=== PATIENT | male | born 1955 | race Caucasian/White ===

== ENCOUNTER → 2017-11-29 09:57 | Outpatient (CLI) | payer BC, SELFPAY ==
--- NOTE | 2017-11-29 10:00 | ECHOD_ITS ---
Reason For Study: CAD/ASHD Procedure This was a 2D Doppler, Color Flow transthoracic echocardiogram. The exam was of fair technical quality due to diminished acoustic windows. The study was technically difficult. Contrast injection was performed. Exam performed in department. Left Ventricle Normal LV size. Apical false tendon noted. Mild to moderate segmental systolic dysfunction (see wall motion). The estimated ejection fraction is 40 %. Transmitral doppler flow suggestive of impaired relaxation of left ventricle. Mid-Anterior : Severely Hypokinetic. Mid-Lateral : Hypokinetic. Mid-Inferior: Hypokinetic. Mid-inferoseptal : Hypokinetic. Mid-anteroseptal : Hypokinetic. [place] : Akinetic. Right Ventricle Normal RV size. Normal systolic function. Atria Normal left atrium. Normal right atrium. Prominent eustachian valve. No doppler evidence for ASD. Mitral Valve There is no mitral annular calcification. Normal mitral valve. Mild (1+) mitral valve insufficiency. Tricuspid Valve Normal tricuspid valve. Trivial tricuspid valve insufficiency. Right ventricular systolic pressure estimated to be 22 mmHg. Aortic Valve Trisinus/trileaflet aortic valve. Normal aortic valve. Pulmonic Valve The pulmonic valve is not well visualized. Trivial pulmonic valve insufficiency. Great Vessels Normal sized aortic root. Pericardium/Pleural No pericardial effusion. Medication Definity0.5ml given slow IV push to enhance endocardial definition. MMode/2D Measurements & Calculations LVIDd: 5.3 cm IVSd: 1.2 cm Ao root diam: 3.1 cm LVIDs: 4.5 cm LVPWd: 0.90 cm LA dimension: 3.7 cm RVDd: 4.7 cm FS: 16.6 % LAV(MOD-bp): 61.9 ml LA A4 area: 19.1 cm2 RA A4 area: 15.4 cm2 LAV(MOD-bp) Indexed: 29.1 ml/m2 LAV(MOD-sp2): 73.6 ml LAV(MOD-sp4): 47.5 ml Doppler Measurements & Calculations MV E max phuc: 67.6 cm/sec Lat Peak E' Phuc: 5.1 cm/sec Med Peak E' Phuc: 5.8 cm/sec MV A max phuc: 60.9 cm/sec E/E' lat: 13.3 E/E' med: 11.6 MV E/A: 1.1 Ao V2 max: 97.4 cm/sec LV V1 max: 80.2 cm/sec PA V2 max: 102.1 cm/sec Ao max P.8 mmHg LV V1 max P.6 mmHg Ao V2 mean: 73.7 cm/sec Ao mean P.3 mmHg Ao V2 VTI: 22.5 cm TR max phuc: 215.3 cm/sec TR max P.6 mmHg Interpretation Summary The study was technically difficult. Contrast injection was performed. Mild to moderate segmental systolic dysfunction (see wall motion). The estimated ejection fraction is 40 %. Apical false tendon noted. Prominent eustachian valve. Mild (1+) mitral valve insufficiency. Trivial tricuspid valve insufficiency. Trivial pulmonic valve insufficiency. Right ventricular systolic pressure estimated to be 22 mmHg. Transmitral doppler flow suggestive of impaired relaxation of left ventricle Ordering Physician: Steve Rivera Referring Physician: John Ricardo Performed By: Dedra Gastelum, SPENCER, RVT
== END ==
PROVIDERS: Family Provider Family Medicine; PCP Family Medicine; Visit Provider Internal Medicine Cardiovascular Disease
DX: I25.10 Atherosclerotic heart disease of native coronary artery without angina pectoris (principal); I21.09 ST elevation (STEMI) myocardial infarction involving other coronary artery of anterior wall; Z95.5 Presence of coronary angioplasty implant and graft; I25.5 Ischemic cardiomyopathy; E78.5 Hyperlipidemia, unspecified
CPT/HCPCS: 93306; Q9957; A4216; C8929

== ENCOUNTER 2018-04-17 10:18 | Day surgery (SDC) | payer BC, SELFPAY ==
--- NOTE | 2018-04-11 11:36 | EKG12_ITS ---
Test Reason : PREOP Blood Pressure : / mmHG Vent. Rate : 059 BPM Atrial Rate : 059 BPM P-R Int : 162 ms QRS Dur : 132 ms QT Int : 442 ms P-R-T Axes : 064 074 062 degrees QTc Int : 437 ms Sinus bradycardia Right bundle branch block Anterior infarct , age undetermined Abnormal ECG Confirmed by MARAH SAMUELS, GÉNESIS ([id number]), editorial cartoonist ROSEMARIE DE LOS SANTOS ([id number]) on 04/12/2018 1:28:06 PM Referred By: Roosevelt Butler Confirmed By:GÉNESIS CRYSTAL MD
[2018-04-11 11:49] LABS: Hematocrit 43.6 % (40-54); Hemoglobin 14.5 g/dl (13.0-16.5); Mean Corp Hgb Conc 33.3 g/gl (32-36); Mean Corpuscular Hgb 30.1 pg (27.0-32.0); Mean Corpuscular Volume 90.6 fL (80-94); Mean Platelet Vol. 9.6 fl (6.2-12.0); Platelet Count 163 K/mm3 (150-450); RBC Distribution Width CV 13.1 % (11.6-14.6); RBC Distribution Width SD 43.2 fl (35.1-43.9); Red Blood Count 4.81 M/mm3 (4.6-6.2); White Blood Count 5.7 K/mm3 (4.4-11.0)
[2018-04-11 11:50] LABS: Scan Indicated on CBC? Y/N NO
[2018-04-11 12:16] LABS: Anion Gap 8 (5-15); BUN 18 mg/dL (7-18); BUN/Creat Ratio 20.2 RATIO (10-20); Calcium,Total 8.8 mg/dL (8.5-10.1); Chloride 107 mmol/L (98-107); Creatinine, Serum 0.89 mg/dL (0.70-1.30); EST Glomerular Filtration Rate 92 mL/min (>60); Est Glom Filt Rate - Afr Amer 111 mL/min (>60); Glucose 78 mg/dL (74-106); Potassium 4.2 mmol/L (3.5-5.1); Sodium Level 141 mmol/L (136-145)
[2018-04-17 10:36] VITALS: BP 128/82; PULSE 56; RESP 16; TEMP 36.4; O2SAT 99; BMI 25.9
[2018-04-17] MEDS: Cefazolin 2 GM in 0.9% Normal Saline 100 ML IV (11:37)
--- NOTE | 2018-04-17 12:15 | RAD_ITS ---
STUDY: X-RAY - RIGHT KNEE REASON FOR EXAM: Male, 62 years old. Subchondroplasty TECHNIQUE: 3 intraoperative view(s) of the knee. COMPARISON: None. FINDINGS: 3 limited C-arm films were obtained as the patient has undergone subchondroplasty of the proximal right tibia. RAD/Knee 1 or 2 Views IMPRESSION: Intraoperative studies Electronically Signed: Storm Stoddard MD at 13:39 EDT , Service support ,
[2018-04-17] MEDS: Bupiv/Epi 0.5% Mpf 30 ML Vial (12:49)
--- NOTE | 2018-04-17 13:04 | OP.PCM_ITS ---
Report of Operation Date of Procedure: 04/17/18 Pre-Operative Diagnosis: 1. Right knee posterior horn medial meniscus tear complex. 2. Right knee posterior horn lateral meniscus tear complex. 3. Right knee chondromalacia. 4. Right knee subchondral fracture lateral tibial plateau Post-Operative Diagnosis: 1. Right knee posterior horn medial meniscus tear complex. 2. Right knee posterior horn lateral meniscus tear complex. 3. Right knee chondromalacia. 4. Right knee subchondral fracture lateral tibial plateau Surgery/Procedure Performed:: 1. Arthroscopic aided treatment of lateral tibial plateau fracture, right knee. 2. Right knee arthroscopic partial medial and lateral meniscectomies. 3. Right knee arthroscopic patellofemoral chondroplasty Description of Surgical Findings:: See body of report enterprise resource planner: None Type of Anesthesia:: General Anesthesiologist: Isaak Evangelista Special Medications: 2 g Ancef Estimated Blood Loss (mL): 7 Fluids Replaced: 800 ml fluid Description of Procedure: On the date of the procedure, the patient's R lower extremity was marked in the preoperative area. Patient was brought back to the operating room where they were transferred to the bed. Anesthesia assumed control of the C-spine airway and administered anesthetic. All bony prominences were identified and well- padded and the R leg was placed in the arthroscopic leg rios. The contralateral leg was then draped over the bed and well-padded. There was padding underneath both sciatic nerves. The foot of the bed was then dropped and the R leg was prepped in a sterile fashion. The surgeon then scrubbed. Upon reentering the room, the operative leg was draped in a standard orthopedic fashion. A timeout was called, everyone agreed upon the side, the site, the procedure to be performed, patient's identity and antibiotics given. Incisions were marked out for the medial and lateral infrapatellar portals. Esmarch bandage was then used to exsanguinate the leg and tourniquet was placed at 250 mmHg. At this time, the lateral portal incision was made in a vertical fashion. The trocar was placed into the joint. The camera was then placed and the patellofemoral joint was visualized. The patella did appear to have grade 3 -4 chondral changes. The trochlea appeared to have grade 2-3 chondral changes with no distinct flaps. We then directed our attention to the medial gutter where there was no foreign body. Then directed our attention to the medial joint compartment. There were grade 2 chondral changes on the medial distal femur, grade 2 chondral changes on the medial tibial plateau. The medial meniscus had posterior horn complex tear. The medial portal was then placed under direct visualization using a spinal needle an 11 blade scalpel. Once this was done a probe was placed in the joint and the meniscus was probed finding posterior horn medial meniscus tear. The biters and fabiola were then used sequentially to debriding get rid of any free edges that could be a source of pain and catching in the meniscus tear. We then directed our attention to the distal femoral and proximal tibial condyles where the chondral flaps were noted. Frayed and free cartilage were debrided using the shaver performing a chondroplasty. Once we felt medial meniscus tear was adequately debrided, we again visualized the joint and noted the meniscus tear was adequately debrided. Attention was then turned towards the notch where the anterior cruciate ligament was intact. PCL was visualized and appeared intact. Attention was then directed towards the lateral compartment where the lateral distal femur had grade 2 chondral changes, the lateral proximal tibia had grade 3 chondral changes. The lateral meniscus had large posterior horn tear. The biters and fabiola were then used sequentially to debriding get rid of any free edges that could be a source of pain and catching in the meniscus tear. Our attention was then directed back to the patellofemoral compartment where the shaver was placed in the patellofemoral compartment in the trochlea and the patella cartilage frayed edges were debrided using the shaver performing the patellofemoral chondroplasty Scope was then removed from the knee. At this time based on the preoperative review of this patient's right knee consistent with lateral tibial plateau subchondral fracture, the location of the marrow lesion consistent with insufficiency stress fracture was identified. Preoperative surgical planning allowed for determination of the optimal method for assessing the lesion. Intraoperatively, image fluoroscopy combined with bone targeting instrumentation from [employer] was used to guide surgical instruments. Instruments were guided into the proximity of the subchondral lateral tibial plateau fracture. [employer] Accu port injection cannula was drilled into the subchondral bone. Standard repair methodology was used to treat subchondral bone defect in the lateral tibial plateau. Image fluoroscopy was utilized to confirm accurate insertion of the active port injection cannula into the subchondral fracture. After insertion fracture stabilization was performed by injecting 2.5 mL of [employer] bone substitute material into the lateral tibial plateau. Image fluoroscopy was used to monitor the injection process and ensure injection of the bone cement into the subchondral bone to the material flowed into the fracture site to stabilize a fracture and facilitate fracture repair. Final x-rays were then taken. Cement was allowed 8 minutes to set up and the Accuport was removed. The scope was then placed back into the knee and the medial compartment was examined for extravasation of cement. No cement had extravasated into the joint. We then directed our attention to the lateral gutter, which was visualized and no free bodies were noted. At this time the wound was copiously irrigated out with normal saline with epinephrine. The wound was closed with 4-0 nylon and 0.5% Marcaine and epinephrine were injected for local anesthetic. Xeroform was placed over the incision. Sterile dressing was placed. Compressive dressing was placed. Tourniquet was let down. For that there was then placed up. Patient was awakened by anesthesia patient was transferred to the PACU for recovery in stable condition. Postoperative plan: Patient will be made nonweightbearing for 2 weeks and then resume weightbearing as tolerated after that. Return to activities as tolerated. He will come to the office in 2 weeks for postoperative wound check and suture removal. If he is doing well that time he can follow-up as needed. Grafts/Implants Used: [employer] - Complications None - Admit VTE Documentation VTE Present on Admission: No VTE Mechan Device Prophylaxis: SCD's, Thigh High MARYAM Hose VTE Pharm Prophylaxis ordered?: Yes
[2018-04-17 13:06] VITALS: BP 124/76; BP 128/82; PULSE 84; RESP 12; TEMP 36.6; O2SAT 95
[2018-04-17 13:15] VITALS: BP 117/31; BP 128/82; PULSE 78; RESP 14; O2SAT 97
[2018-04-17 13:30] VITALS: BP 125/82; BP 128/82; PULSE 72; RESP 14; O2SAT 96
[2018-04-17] MEDS: Ketorolac 30 MG/ML Syringe IV (13:37)
[2018-04-17 13:44] VITALS: BP 128/82; BP 132/77; PULSE 56; RESP 14; TEMP 36.4; O2SAT 96
[2018-04-17 14:45] VITALS: BP 128/82; BP 148/92; PULSE 47; RESP 16; TEMP 36; O2SAT 100
== END 2018-04-17 14:45 | disposition home or self-care (01) ==
LOC: SDC 10:18 → AC 10:19
PROVIDERS: Family Provider Family Medicine; PCP Family Medicine; Visit Provider Specialist
PROC: (CPT 29870; principal; 2018-04-17 12:10)
DX: S83.231A Complex tear of medial meniscus, current injury, right knee, initial encounter (principal); X58.XXXA Exposure to other specified factors, initial encounter; Y93.02 Activity, running; M94.261 Chondromalacia, right knee; S83.271A Complex tear of lateral meniscus, current injury, right knee, initial encounter; S82.141A Displaced bicondylar fracture of right tibia, initial encounter for closed fracture; E78.00 Pure hypercholesterolemia, unspecified; Z79.82 Long term (current) use of aspirin; Z79.899 Other long term (current) drug therapy; I45.10 Unspecified right bundle-branch block; I25.2 Old myocardial infarction; Z87.891 Personal history of nicotine dependence; I10 Essential (primary) hypertension
CPT/HCPCS: 29855; 29880; 36415; 73560; 76000; 80048; 85027; 93005; J7120

== ENCOUNTER → 2020-01-28 08:06 | Outpatient (CLI) | payer BC, SELFPAY ==
[2019-08-01 09:03] VITALS: BMI 27.2
[2020-01-28 08:59] LABS: AST(SGOT) 25 U/L (15-37); Alanine Aminotransfer ALT/SGPT 43 U/L (16-61); Albumin, Serum 3.6 g/dL (3.2-5.0); Alkaline Phosphatase 60 U/L (45-117); Bilirubin, Direct 0.23 mg/dL (0.00-0.30); Cholesterol 130 mg/dL (200); Globulin 3.4 g/dL (2.2-4.2); High Density Lipoprotein 61 mg/dL; Triglycerides 74 mg/dL; Very Low Density Lipoprotein 15 mg/dL (5-40)
== END ==
PROVIDERS: PCP Family Medicine; Referring Provider Internal Medicine Cardiovascular Disease; Visit Provider Internal Medicine Cardiovascular Disease
DX: E78.00 Pure hypercholesterolemia, unspecified (principal)
CPT/HCPCS: 36415; 80061; 80076

== ENCOUNTER 2021-04-06 09:57 | Emergency (ER) | payer BC, SELFPAY ==
[2021-04-06 09:58] VITALS: BP 128/72; PULSE 55; RESP 18; TEMP 36.6; O2SAT 100; BMI 25.0
[2021-04-06 10:20] VITALS: BP 128/72; PULSE 55; RESP 18; TEMP 36.6; O2SAT 100
--- NOTE | 2021-04-06 10:23 | CT_ITS ---
STUDY: CT ABDOMEN AND PELVIS WITH CONTRAST REASON FOR EXAM: Male, 65 years old. Elevated transaminases, lipase and 11 pound uninte -- IV PO Contrast RADIATION DOSAGE (If Supplied By Facility): CTDIvol = ( 13.58 ) mGy, DLP = ( 706.21 ) mGycm TECHNIQUE: Transaxial images were obtained from the dome of the diaphragm to the symphysis pubis with oral contrast. Oral and amp; IV Gastrografin and amp; 100mL Isovue-300 was administered. Sagittal and coronal images were reconstructed. Individualized dose optimization techniques were used for this CT. COMPARISON: None. FINDINGS: The visualized lung bases are unremarkable. The visualized portions of the heart are within normal limits. Normal liver. Normal gallbladder and extrahepatic biliary system. 2 wedge-shaped areas of decreased enhancement within the spleen consistent with splenic infarcts. These are likely embolic in origin as the splenic artery and splenic vein appears patent. Normal pancreas. There is symmetric enlargement of the adrenal glands suggesting adrenal hyperplasia. Small bilateral renal cysts. 3.5 cm solid heterogeneously enhancing mass of the posterior lateral cortex of the midsection of left kidney worrisome for renal cell carcinoma. No evidence of tumor thrombus within the left renal vein or inferior vena cava. Normal visualized stomach. Diverticulum in second portion duodenum. Normal colon. There are surgical clips in the region of the appendix consistent with a prior appendectomy. Normal abdominal aorta. Normal inferior vena cava. Normal retroperitoneum. Severe bladder distention extending to the level the umbilicus. There is enlargement of the prostate gland. Normal abdominal wall. Normal osseous structures. CT/Abdomen/Pelvis WITH Contrast IMPRESSION: 1. 3.5 cm solid heterogeneously enhancing mass in the posterior lateral cortex of the midsection left kidney worrisome for renal cell carcinoma. No CT evidence of metastatic lymphadenopathy. 2. 2. Splenic infarcts likely of embolic origin. 3. Probable benign prostatic hyperplasia with severe bladder distention. Electronically Signed: Jacobo Medina MD at 12:56 EDT Tel , Service support ,
--- NOTE | 2021-04-06 11:26 | EX.ED.DYSGE1 ---
HPI History of Present Illness Chief Complaint: Abd Pain Detail of Chief Complaint: Elevated transaminase, lipase and unintentional weight loss Informant: patient and spouse/S.O. Onset/Context/Timing Onset: Month(s) Context: Gradual Onset Timing: Continuous Quality: Loss of appetite, weight loss, elevated/abnormal labs Location: Not applicable Current Severity: Mild Maximum Severity: Moderate Worsened by: Nothing Relieved by: Nothing Associated Symptoms Associated Symptoms: Read HPI Narrative Narrative: Patient is a 65-year-old male with past medical history of ischemic cardiomyopathy, hyperlipidemia, coronary disease status post NH who presents because of elevated AST and ALT approximately 3 times normal and lipase approximately 3 times normal with unintentional weight loss of 11 pounds over the past month. He has had hard small stool. Stool is dark. He did take Pepto-Bismol last evening. Stool was not black or maroon-colored. He does report nausea. He states he has no appetite. He denies fever or chills. He denies night sweats. He denies back or bone pain. He does have intolerance to greasy food. He states he has generalized abdominal discomfort. He has not noted any change in the color of his urine. He has not noted change in color or stool. He denies history of pancreatitis. He is status post appendectomy. He denies cardiac or respiratory symptoms. Prior similar symptoms: No Recent Illness/Hospitalization: No [facility] Medical History (Updated 04/06/21 @ 16:[address] Olu Armas MD) Anterior myocardial infarction Atherosclerotic heart disease of [place] coronary artery without angina pectoris Hyperlipidemia Ischemic cardiomyopathy Home Medications aspirin 81 mg PO DAILY 10/12/16 [History Last Taken Unknown] nitroglycerin 0.4 mg sublingual tablet 0.4 mg SUBLINGUAL Q5-15M PRN #25 tab 02/14/19 [Rx Last Taken Unknown] atorvastatin 80 mg tablet 80 mg PO DAILY #90 tab 03/24/20 [Rx Last Taken Unknown] carvedilol 3.125 mg tablet 3.125 mg PO BID #180 tab 03/24/20 [Rx Last Taken Unknown] omega-3 fatty acids 1,000 mg capsule 1,000 mg PO DAILY 05/07/20 [History Last Taken Unknown] tamsulosin 0.4 mg capsule 0.4 mg PO DAILY 05/07/20 [History Last Taken Unknown] rivaroxaban [Xarelto DVT-PE Treat 30d Start] See Rx Instructions .ROUTE .COMPLEX 30 Days #49 tablet 04/06/21 [Rx Last Taken Unknown] Allergy/AdvReac Type Severity Reaction Status Date / Time Sulfa (Sulfonamide Allergy SWEATING Verified 04/06/21 10:02 Antibiotics) AND LIGHT HEADED Family History Father Myocardial infarction CAD (coronary artery disease) Hypertension Diabetes Mother Diabetes Atrial fibrillation Brother Diabetes Surgical History History of right knee surgery History of vasectomy Hx of appendectomy Postsurgical percutaneous transluminal coronary angioplasty (PTCA) status (~04/08/14) Presence of stent in coronary artery (~04/08/14) Social History (Updated 04/06/21 @ 11:[address] Olu Armas MD) household members: spouse Smoking Status: Former smoker alcohol intake: current substance use type: does not use ROS ROS ED Constitutional Constitutional ED: Reports weight loss; Denies chills, fever(s), subjective or sweats Eyes Eyes: Denies blurry vision, change in vision or diplopia ENT ENT ED: Denies ear pain, rhinorrhea or sore throat Cardiovascular Cardiovascular: Denies chest pain, orthopnea, palpitations or paroxysmal nocturnal dyspnea Respiratory/Chest Respiratory/Chest: Denies cough, dyspnea, dyspnea on exertion, orthopnea or paroxysmal nocturnal dyspnea Gastrointestinal Gastrointestinal: Reports abdominal pain and nausea; Denies constipation, diarrhea, melena or vomiting Genitourinary Genitourinary ED: Denies dysuria, hematuria or urinary frequency Musculoskeletal Musculoskeletal: Denies arthralgias, back pain, myalgias or neck pain Integumentary Denies rash Neurologic Neurologic: Reports weakness; Denies headache(s) or paresthesias Endocrine Endocrinology: Denies polydipsia, polyphagia or polyuria EXAM Physical Exam Const Vital Signs: 04/06/21 09:58 04/06/21 10:20 04/06/21 11:34 Temperature 97.9 F 97.9 F 97.6 F L Temperature Source Temporal Temporal Oral Pulse Rate 55 L 55 L 68 Respiratory Rate 18 18 15 Blood Pressure 128/72 H 128/72 H 129/77 H Blood Pressure Mean 90 90 94 Pulse Ox 100 100 97 Oxygen Delivery Method Room Air Room Air Room Air 04/06/21 12:08 04/06/21 15:28 Temperature 97.6 F L Temperature Source Oral Pulse Rate 62 61 Respiratory Rate 15 14 Blood Pressure 138/77 H 131/87 H Blood Pressure Mean 97 101 Pulse Ox 97 98 Oxygen Delivery Method Room Air Room Air Positive well nourished and well developed General Appearance ED: well developed and NAD HEENT Reports TM's clear and dry mucous membranes HEENT Narrative: Head is atraumatic normocephalic. Ears normal. Nares patent. Tympanic Membrane ED: Yes TM's clear Mouth ED: Yes dry mucous membranes Mouth: dry mucous membranes Eyes PERRL and EOMs intact bilaterally General Eye ED: Negative for pale conjunctiva or scleral icterus Neck no lymphadenopathy, supple and no JVD Chest Wall inspection of chest normal Resp normal respiratory effort and clear to auscultation bilaterally Cardio regular rhythm, S1 normal heart sound, S2 normal heart sound and no murmurs Rate: bradycardia GI no masses; Negative for non-tender, non-distended or hepatosplenomegaly Inspection: abdominal distention Auscultation: hypoactive bowel sounds Palpation: soft and tender LUQ (To deep palpation.); Negative for guarding or rebound tenderness present Back/Spine no CVA tenderness Cervical Spine: Negative for cervical spine tenderness Thoracic Spine / Upper Back: Negative for thoracic spinal tenderness or paraspinal muscle tenderness Extremity normal to inspection General Extremety ED: Negative for edema or tenderness General Extremity: Negative for edema Neuro oriented x3, CN's II-XII intact bilaterally and no sensory deficits noted Sensorium / Orientation: alert Motor Exam: strength 5/5 throughout Psych mental status grossly normal Skin no rashes or lesions noted and no wounds MDM MDM MDM Narrative Medical decision making narrative: Patient had blood work performed at the [facility] yesterday. White count and H&H are normal. Electrolyte panel reveals mild hyponatremia. Calcium was normal. AST and ALT approximately 2-3 times above normal and lipase was approximately 3 times normal. These were not repeated. Creatinine was 0.77. CT of the abdomen with p.o. and IV contrast was obtained to evaluate for hepatic and pancreatic pathology and specifically pancreatic cancer. Post void residual is 999 mL. Amaro was ordered. Patient wishes to remain in the [facility] system. Dr. James is on-call for oncology and was paged. Case was discussed with Dr. Steve James. He recommended CT of the chest. If there is nodules referral to urology and him otherwise referral to urology. Radiography Diagnostic Testing: Radiology Impression Abdomen/Pelvis CT 04/06/21 10:23 IMPRESSION: 1. 3.5 cm solid heterogeneously enhancing mass in the posterior lateral cortex of the midsection left kidney worrisome for renal cell carcinoma. No CT evidence of metastatic lymphadenopathy. 2. 2. Splenic infarcts likely of embolic origin. 3. Probable benign prostatic hyperplasia with severe bladder distention. Electronically Signed: Jacobo Medina MD at 12:56 EDT Tel , Service support , CT of the chest reveals no metastatic disease. Therefore patient was discharged to follow-up with Dr. Corona. He was given prescription for Xarelto. He was given a starter pack. He was instructed follow-up with Loki Anthony for additional scripts. Discharge Plan Triage Chief Complaint: Abd Pain ED Provider: Olu Armas Dx/Rx/DC Orders Clinical Impression: Left kidney mass, Splenic infarct, Acute urinary retention, Benign prostatic hyperplasia Instructions: ED Amaro Catheter, Care, ED Tumor, Uncertain Cause, ED Urinary Retention, Male Prescriptions: New Xarelto DVT-PE Treat 30d Start 15 mg (42)- 20 mg (9) tablets,dose pack See Rx Instructions .ROUTE .COMPLEX 30 Days Qty: 49 RF: 0 No Action nitroglycerin 0.4 mg tablet, sublingual 0.4 mg SUBLINGUAL Q5-15M PRN (Reason: chest pain) Qty: 25 RF: 3 omega-3 fatty acids [Fish Oil Concentrate] 1,000 mg capsule 1,000 mg PO DAILY RF: 0 tamsulosin 0.4 mg capsule 0.4 mg PO DAILY RF: 0 aspirin 81 MG tablet,delayed release (DR/EC) 81 mg PO DAILY RF: 0 atorvastatin 80 mg tablet 80 mg PO DAILY Qty: 90 RF: 3 carvedilol 3.125 mg tablet 3.125 mg PO BID Qty: 180 RF: 3 Primary Care Provider: Aurora Anthony Referrals: Victor M Corona MD [STAFF PHYSICIAN] - As soon as possible Anthony,M Scott PA, PA [Primary Care Provider] - Disposition Disposition: Home, Self Care
[2021-04-06 11:34] VITALS: BP 129/77; PULSE 68; RESP 15; TEMP 36.4; O2SAT 97
[2021-04-06 12:08] VITALS: BP 138/77; PULSE 62; RESP 15; TEMP 36.4; O2SAT 97
--- NOTE | 2021-04-06 14:50 | CT_ITS ---
STUDY: CT CHEST WITHOUT CONTRAST REASON FOR EXAM: Male, 65 years old. Assess for lung mass, newly diagnosed renal cell c RADIATION DOSAGE (If Supplied By Facility): CTDIvol = ( 14.82 ) mGy, DLP = ( 544.28 ) mGycm TECHNIQUE: Transaxial imaging was performed without the administration of intravenous contrast material. Individualized dose optimization techniques were used for this CT. COMPARISON: None. FINDINGS: Patchy ground glass density within both lungs consistent with subsegmental atelectasis or pneumonitis. There is no demonstrated pleural abnormality. Normal heart and pericardium. There are calcifications of the coronary arteries. Normal mediastinum. Normal hilar regions. Normal unenhanced pulmonary arteries. Normal aorta arch and descending thoracic aorta. Normal osseous structures. There is no demonstrated abnormality of the visualized upper abdomen. CT/Chest without Contrast IMPRESSION: 1. Bilateral subsegmental atelectasis or pneumonitis. Imaging features can be seen with over 19 pneumonia though are nonspecific and can occur with a variety of infectious and noninfectious processes. 2. No CT evidence of metastatic disease. Electronically Signed: Jacobo Medina MD at 16:54 EDT Tel , Service support ,
[2021-04-06] MEDS: APIXABAN 5 MG TABLET PO (15:27)
[2021-04-06 15:28] VITALS: BP 131/87; PULSE 61; RESP 14; O2SAT 98
[2021-04-06 17:17] VITALS: BP 133/81; PULSE 56; RESP 14; O2SAT 97
== END 2021-04-06 17:33 | disposition home or self-care (01) ==
PROVIDERS: Emergency Provider Emergency Medicine; PCP Physician Assistant
DX: N28.89 Other specified disorders of kidney and ureter (principal); D73.5 Infarction of spleen; N40.1 Benign prostatic hyperplasia with lower urinary tract symptoms; R33.8 Other retention of urine; E78.5 Hyperlipidemia, unspecified; I25.2 Old myocardial infarction; I25.5 Ischemic cardiomyopathy; I25.10 Atherosclerotic heart disease of native coronary artery without angina pectoris; Z95.5 Presence of coronary angioplasty implant and graft; Z90.49 Acquired absence of other specified parts of digestive tract; Z79.01 Long term (current) use of anticoagulants; Z79.82 Long term (current) use of aspirin; Z79.899 Other long term (current) drug therapy; Z87.891 Personal history of nicotine dependence
CPT/HCPCS: 51702; 71250; 74177; 96360; 96361; 99285; J7030; Q9967; A4216

== ENCOUNTER → 2021-04-21 13:03 | Outpatient (CLI) | payer BC, SELFPAY ==
--- NOTE | 2021-04-21 13:09 | ECHOCS_ITS ---
Reason For Study: ASHD/ EMBOLI Procedure This was a 2D Doppler, Color Flow transthoracic echocardiogram. The study was technically difficult. Contrast injection was performed. Exam performed in department. Left Ventricle Normal LV size. Apical false tendon noted. Mild segmental systolic dysfunction (see wall motion). The estimated ejection fraction is 40 %. No evidence for diastolic dysfunction. Basal inferoseptal: Hypokinetic. Mid-inferoseptal : Akinetic. Mid-anteroseptal : Hypokinetic. Eagle : Akinetic. Right Ventricle Normal RV size. Normal systolic function. Atria Normal left atrium. Normal right atrium. No doppler evidence for ASD. Mitral Valve There is no mitral annular calcification. Normal mitral valve. Mild (1+) mitral valve insufficiency. Tricuspid Valve Normal tricuspid valve. Mild tricuspid valve insufficiency. Right ventricular systolic pressure estimated to be 28 mmHg. Aortic Valve Trisinus/trileaflet aortic valve. Mild focal aortic valve calcification. Pulmonic Valve The pulmonic valve is not well visualized. Great Vessels Normal sized aortic root. Pericardium/Pleural No pericardial effusion. Medication 22 gauge I.V. with prn adaptor inserted into left arm. Diluted definity 4.0ml given slow IV push to enhance endocardial definition. MMode/2D Measurements & Calculations LVIDd: 5.1 cm IVSd: 1.1 cm Ao root diam: 3.2 cm LVIDs: 3.9 cm LVPWd: 1.1 cm RVDd: 4.0 cm FS: 22.8 % LAV(MOD-bp): 65.7 ml LVAd ap4: 51.2 cm2 LVAd ap2: 43.3 cm2 LAV(MOD-bp) Indexed: 31.5 ml/m2 LVLd ap4: 10.2 cm LVLd ap2: 9.0 cm LAV(MOD-sp2): 67.9 ml EDV(MOD-sp4): 212.6 ml EDV(MOD-sp2): 177.8 ml LAV(MOD-sp4): 65.9 ml EDV(sp4-el): 217.7 ml EDV(sp2-el): 177.4 ml LVAs ap4: 34.9 cm2 LVAs ap2: 35.1 cm2 LVLs ap4: 8.8 cm LVLs ap2: 8.2 cm ESV(MOD-sp4): 112.5 ml ESV(MOD-sp2): 121.8 ml ESV(sp4-el): 117.4 ml ESV(sp2-el): 126.7 ml EF(MOD-sp4): 47.1 % EF(MOD-sp2): 31.5 % EF(sp4-el): 46.1 % SV(MOD-sp4): 100.1 ml SV(MOD-sp2): 56.0 ml SV(sp4-el): 100.4 ml LA A4 area: 22.3 cm2 LA dimension(2D): 3.8 cm RA A4 area: 17.3 cm2 Doppler Measurements & Calculations MV E max phuc: 60.1 cm/sec Lat Peak E' Phuc: 6.7 cm/sec Med Peak E' Phuc: 6.6 cm/sec MV A max phuc: 60.8 cm/sec E/E' lat: 9.0 E/E' med: 9.0 MV E/A: 0.99 Ao V2 max: 118.1 cm/sec LV V1 max: 94.7 cm/sec TR max phuc: 252.1 cm/sec Ao max P.6 mmHg LV V1 max P.6 mmHg TR max P.4 mmHg ECHO/Echo Complete W/ Contrast Interpretation Summary The study was technically difficult. Contrast injection was performed. Mild segmental systolic dysfunction (see wall motion). The estimated ejection fraction is 40 %. Apical false tendon noted. Mild (1+) mitral valve insufficiency. Mild tricuspid valve insufficiency. Mild focal aortic valve calcification. Right ventricular systolic pressure estimated to be 28 mmHg. No evidence for diastolic dysfunction. Comment: No obvious intracardiac mass lesion/thrombus identified. Ordering Physician: Steve Rivera Referring Physician: KIRK FRANKLIN Performed By: Kimberly Hirsch, TANYACS, RVT
== END ==
PROVIDERS: PCP Physician Assistant; Referring Provider Internal Medicine Cardiovascular Disease; Visit Provider Internal Medicine Cardiovascular Disease
DX: I25.10 Atherosclerotic heart disease of native coronary artery without angina pectoris (principal)
CPT/HCPCS: 93306; Q9957; A4216; C8929; J3490

== ENCOUNTER 2021-08-16 06:51 | Outpatient (CLI) | payer BC, SELFPAY ==
--- NOTE | 2021-08-16 13:12 | STRESSREP_ITS ---
Stress Test Report [facility]: 08-16-2021 Procedure: Exercise tolerance test/imaging study Indications: CAD; PCI; ischemic cardiomyopathy; preoperative cardiovascular evaluation Consent: Per the patient Procedure: The patient exercised on a Librado protocol for 10 minutes completing Stage III and 1 minute of Stage IV achieving a peak heart rate of 164 bpm (105% predicted maximal heart rate) with a peak blood pressure 194/80 mmHg and a peak MET capacity of 13 METs. The baseline ECG demonstrated sinus bradycardia; right IVCD pattern; anteroseptal NM of indeterminate age cannot be excluded. The peak exercise ECG demonstrated somatic/motion artifact with continued right IVCD pattern and no obvious ST segment abnormality. There was a rare PVC during exercise and recovery. The functional capacity was considered good. There was no complaint of chest discomfort during exercise or recovery. The examination was discontinued secondary to dyspnea. Impression: 1. Technically adequate (percent predicted maximal heart rate greater than 85%) exercise tolerance test 2. Peak exercise ECG with somatic/motion artifact with continued right IVCD pattern with no obvious ST segment abnormality 3. There was a rare PVC during exercise and recovery 4. Nuclear images pending Myocardial perfusion imaging study: Technique: The patient was injected with 14.2 mCi of technetium 99m Cardiolite and subsequently rest SPECT Cardiolite nuclear imaging was obtained in the horizontal long, vertical long, and short axis views. The patient exercised on a Librado protocol for 10 minutes completing Stage III and 1 minute of Stage IV achieving a peak heart rate of 164 bpm (105% predicted maximal heart rate) with a peak blood pressure 194/80 mmHg and a peak MET capacity of 13 METs. The patient was injected with 44.4 mCi of technetium 99m Cardiolite and subsequently stress SPECT Cardiolite nuclear imaging was obtained in the horizontal long, vertical long, and short axis views. A gated Cardiolite study at peak stress was obtained. Interpretation: Rest and stress SPECT Cardiolite nuclear imaging status post realignment, normalization, and attenuation correction, demonstrates the appearance of diminished to absence of myocardial perfusion/tracer uptake in portions of the distal anterior, distal anteroseptal, distal inferoseptal, and apical segments. There is diminished end-systolic thickening and brightening in the aforementioned areas. The gated Cardiolite study demonstrates diminished myocardial thickening and inward wall motion in the aforementioned area with. The reported LVEF is 34%. Impression: 1. Rest and stress SPECT Cardiolite nuclear imaging demonstrate myocardial perfusion changes appearing compatible with an area of previous myocardial injury/infarction involving portions of the distal anterior, distal anteroseptal, distal inferoseptal, and apical segments with no myocardial perfusion changes considered diagnostic for associated stress-induced myocardial ischemia. 2. The gated Cardiolite study reports an LVEF of 34%. This note was generated with [employer] software. It may contain incorrect words, spelling, and punctuation that were not noted in checking the note before signing.
== END 2021-08-16 23:59 | disposition short-term general hospital (02) ==
PROVIDERS: PCP Physician Assistant; Referring Provider Internal Medicine Cardiovascular Disease; Visit Provider Internal Medicine Cardiovascular Disease
DX: I25.10 Atherosclerotic heart disease of native coronary artery without angina pectoris (principal); Z95.5 Presence of coronary angioplasty implant and graft; I25.5 Ischemic cardiomyopathy; E78.5 Hyperlipidemia, unspecified; N28.89 Other specified disorders of kidney and ureter; D73.5 Infarction of spleen
CPT/HCPCS: 78452; 93017; A9500; A4216; J2785

== ENCOUNTER → 2023-01-20 | Outpatient (CLI) | payer BC, SELFPAY ==
--- NOTE | 2023-01-20 09:51 | CT_ITS ---
EXAM: CT CHEST WITHOUT INTRAVENOUS CONTRAST CLINICAL INDICATION: Lung Nodule TECHNIQUE: Helically acquired images were obtained of the chest without intravenous contrast. This CT exam was performed using one or more of the following dose reduction techniques: automated exposure control, adjustment of the mA and/or kV according to patient size, and/or use of iterative reconstruction technique. RADIATION DOSE: CTDIvol = 21.06 mGy, DLP = 1162.79 mGy-cm COMPARISON: 04/06/2021. FINDINGS: LUNGS AND PLEURAL SPACES: Mild emphysema. No mass. No pleural effusion or thickening. No pneumothorax. HEART: Coronary artery calcifications. Heart size is normal. No pericardial effusion. MEDIASTINUM: Unremarkable. No mediastinal or hilar adenopathy. Esophagus is unremarkable. No hiatal hernia. THYROID: Unremarkable. No thyroid lesions. BONES/JOINTS: Unremarkable. No suspicious lytic or blastic abnormality. VASCULATURE: See above. OTHER FINDINGS: Small perifissural nodule measuring 4 mm abutting the minor fissure. CT/Chest without Contrast IMPRESSION: 1. Mild emphysema. 2. Small perifissural nodule measuring 4 mm abutting the minor fissure. No follow-up imaging necessary. 3. Coronary artery disease. Electronically Signed: Patrick Mckenzie MD at 21:50 EDT ,
== END | disposition home or self-care (01) ==
LOC: CT 09:50
PROVIDERS: PCP Physician Assistant; Referring Provider Internal Medicine Critical Care Medicine; Visit Provider Internal Medicine Critical Care Medicine
DX: R91.1 Solitary pulmonary nodule (principal)
CPT/HCPCS: 71250

== ENCOUNTER → 2024-03-14 | Outpatient (CLI) | payer OTHER, SELFPAY ==
--- NOTE | 2024-03-14 12:55 | ECHOD_ITS ---
Reason For Study: DILATED CMP Procedure This was a 2D Doppler, Color Flow transthoracic echocardiogram. The study was technically difficult. Contrast injection was performed. Exam performed in department. Left Ventricle Mildly dilated left ventricle. The estimated ejection fraction is 25-30 %. There is evidence of diastolic dysfunction. Global hypokinesis. Right Ventricle Normal RV size. Normal systolic function. Atria The left atrium is mildly enlarged. Normal right atrium. No doppler evidence for ASD. Mitral Valve There is no mitral valve stenosis. Trivial mitral valve insufficiency. Tricuspid Valve There is no tricuspid stenosis. Trivial tricuspid valve insufficiency. Unable to estimate RV systolic pressure due to insufficient tricuspid regurgitant envelope. Aortic Valve Trisinus/trileaflet aortic valve. There is no aortic stenosis. No aortic valve insufficiency. Pulmonic Valve There is no pulmonic valvular stenosis. No pulmonic valve insufficiency. Great Vessels Normal aortic root. Pericardium/Pleural No pericardial effusion. Medication 22 gauge I.V. with prn adaptor inserted into right arm. Diluted definity 1.5ml given slow IV push to enhance endocardial definition. MMode/2D Measurements & Calculations LVIDd: 5.8 cm IVSd: 1.1 cm Ao root diam: 3.4 cm LVIDs: 4.4 cm LVPWd: 1.1 cm RVDd: 3.4 cm FS: 23.8 % LAV(MOD-bp): 78.2 ml LA A4 area: 22.8 cm2 LA dimension(2D): 4.3 cm LAV(MOD-bp) Indexed: 36.0 ml/m2 LAV(MOD-sp2): 79.2 ml LAV(MOD-sp4): 76.9 ml TAPSE: 2.1 cm RA A4 area: 16.5 cm2 Time Measurements MV dec time: 0.16 sec Doppler Measurements & Calculations MV E max phuc: 50.2 cm/sec Lat Peak E' Phuc: 2.8 cm/sec Med Peak E' Phuc: 5.4 cm/sec MV A max phuc: 71.8 cm/sec E/E' lat: 17.8 E/E' med: 9.3 MV E/A: 0.70 MV V2 max: 81.0 cm/sec MV P1/2t max phuc: 52.9 cm/sec PA V2 max: 77.8 cm/sec MV max P.6 mmHg MV P1/2t: 58.7 msec PA V2 mean: 57.0 cm/sec MV V2 mean: 38.5 cm/sec MV dec slope: 264.2 cm/sec2 MV mean P.70 mmHg MV V2 VTI: 19.4 cm MVA(P1/2t): 3.7 cm2 ECHO/Echo Complete Interpretation Summary The estimated ejection fraction is 25-30 %. There is evidence of diastolic dysfunction. Global hypokinesis The left atrium is mildly enlarged. Trivial mitral valve insufficiency. Ordering Physician: Maryam Gonsales Referring Physician: Scott Anthony Performed By: Veda Call, SPENCER, RVT
== END | disposition home or self-care (01) ==
PROVIDERS: PCP Physician Assistant; Referring Provider Physician Assistant Medical; Visit Provider Physician Assistant Medical
DX: I25.5 Ischemic cardiomyopathy (principal); I25.10 Atherosclerotic heart disease of native coronary artery without angina pectoris; E78.5 Hyperlipidemia, unspecified
CPT/HCPCS: 93306; Q9957; A4216

== ENCOUNTER → 2024-06-09 | Outpatient (CLI) | payer OTHER, SELFPAY ==
[2024-06-09 12:38] LABS: Anion Gap 4 (5-15); BUN 21 mg/dL (7-18); BUN/Creat Ratio 15.6 RATIO (10-20); Calcium,Total 9.2 mg/dL (8.5-10.1); Chloride 110 mmol/L (98-107); Creatinine, Serum 1.35 mg/dL (0.70-1.30); EST Glomerular Filtration Rate 56 mL/min (>60); Est Glom Filt Rate - Afr Amer 68 mL/min (>60); Glucose 109 mg/dL (74-106); Potassium 4.5 mmol/L (3.5-5.1); Sodium Level 140 mmol/L (136-145)
== END | disposition home or self-care (01) ==
PROVIDERS: PCP Physician Assistant; Referring Provider Physician Assistant Medical; Visit Provider Physician Assistant Medical
DX: Z95.5 Presence of coronary angioplasty implant and graft (principal); I25.5 Ischemic cardiomyopathy
CPT/HCPCS: 36415; 80048

== ENCOUNTER → 2024-07-03 | Outpatient (CLI) | payer OTHER, SELFPAY ==
--- NOTE | 2024-07-03 09:02 | ECHOL_ITS ---
Reason For Study: DCMP Procedure This was a limited 2D transthoracic echocardiogram. Exam performed in department. Left Ventricle Moderately dilated left ventricle. Apical false tendon noted. The left ventricular ejection fraction is 30 %. There are regional wall motion abnormalities as specified. Right Ventricle Normal RV size. Normal systolic function. Atria The left atrium is mildly enlarged. Normal right atrium. Mitral Valve Normal mitral valve. Tricuspid Valve The tricuspid valve is not well visualized. Aortic Valve Trisinus/trileaflet aortic valve. Pulmonic Valve Normal pulmonic valve. Great Vessels Normal aortic root. The pulmonary artery is normal size. Normal inferior vena cava. Pericardium/Pleural No pericardial effusion. MMode/2D Measurements & Calculations LVIDd: 6.0 cm IVSd: 1.2 cm LAV(MOD-bp): 70.1 ml LVIDs: 4.9 cm LVPWd: 1.2 cm LAV(MOD-bp) Indexed: 32.2 ml/m2 FS: 18.9 % LAV(MOD-sp2): 63.1 ml LAV(MOD-sp4): 69.3 ml SV(MOD-sp4): 60.7 ml SV(sp4-el): 60.4 ml LVAd ap4: 44.9 cm2 LVLd ap4: 9.0 cm SI(MOD-sp4): 27.9 ml/m2 EDV(MOD-sp4): 181.9 ml EDV(sp4-el): 189.6 ml LVAs ap4: 35.9 cm2 LVLs ap4: 8.5 cm ESV(MOD-sp4): 121.2 ml ESV(sp4-el): 129.2 ml EF(MOD-sp4): 33.4 % EF(sp4-el): 31.8 % LA A4 area: 23.5 cm2 RA A4 area: 16.2 cm2 ECHO/Echo, Limited Study Interpretation Summary The left ventricular ejection fraction is 30 %. Moderately dilated left ventricle. There are regional wall motion abnormalities as specified. The left atrium is mildly enlarged. Ordering Physician: Maryam Gonsales Referring Physician: Maryam Gonsales Performed By: Naima Bender RCS
== END | disposition home or self-care (01) ==
LOC: CVS 09:01
PROVIDERS: PCP Physician Assistant; Referring Provider Physician Assistant Medical; Visit Provider Physician Assistant Medical
DX: I25.5 Ischemic cardiomyopathy (principal); Z95.5 Presence of coronary angioplasty implant and graft
CPT/HCPCS: 93308

== ENCOUNTER → 2025-05-15 | Outpatient (CLI) | payer OTHER, SELFPAY ==
[2025-05-15 10:07] LABS: AST(SGOT) 26 U/L (<=37); Alanine Aminotransfer ALT/SGPT 45 U/L (<=46); Albumin, Serum 4.1 g/dL (3.4-4.8); Alkaline Phosphatase 56 U/L (40-129); Bilirubin, Direct 0.18 mg/dL (0.00-0.30); Cholesterol 123 mg/dL (<=200); Globulin 2.5 g/dL (2.2-4.2); Low Density Lipoprotein Calc. 57 mg/dL; Triglycerides 95 mg/dL; Very Low Density Lipoprotein 19 mg/dL (5-40); cholesterol:hdl ratio screen 2.62
== END | disposition home or self-care (01) ==
LOC: LAB 08:26
PROVIDERS: PCP Registered Nurse; Referring Provider Physician Assistant Medical; Visit Provider Physician Assistant Medical
DX: E78.5 Hyperlipidemia, unspecified (principal)
CPT/HCPCS: 36415; 80061; 80076